=== PATIENT | male | born 1940 | race Caucasian/White ===

== ENCOUNTER 2016-10-10 09:35 | Day surgery (SDC) | payer OTHER ==
--- NOTE | ~2016-10-10 | EGD ---
EGD REPORT [facility] [address] [id number] NAME: DANIEL CAREY : [birth year] STATUS : REG [facility] PAT#: [id number] AGE: 76 ADM/REG DATE : 10/10/16 MR#: [id number] REPORT SERV DATE: 10/10/16 DICTATED BY: BEATRIZ WOLF DATE: 10/10/16 REPORT STATUS : Draft [facility]ANS[facility]: [facility] DATE: 10/10/16 Endoscopy Center Patient Name: Daniel Carey Date of : 1940 Attending MD: LEONEL WOLF MD Procedure Date No Time: 10/10/2016 Procedure: Small bowel enteroscopy Indications: GI bleeding source not documented by previous EGD and colonoscopy Referring MD: MELY RAI MD, Jewel Hendrickson III, MD Medicines: See the Anesthesia note for documentation of the administered medications Complications: No immediate complications. Estimated blood loss: None. Procedure: Pre-Anesthesia Assessment: - ASA Grade Assessment: III - A patient with severe systemic disease. After obtaining informed consent, the endoscope was passed under direct vision. Throughout the procedure, the patient's blood pressure, pulse, and oxygen saturations were monitored continuously. The PCF [id number] was introduced through the mouth and advanced to the jejunum, to the 160 cm bijal (from the incisors). The small bowel enteroscopy was accomplished without difficulty. The patient tolerated the procedure well. Findings: Scope passed to 100 cms beyond the pylorus and 160 cms beyond the incisors There was no evidence of significant pathology at 100. No blood, AVM, ulcer or any other lesion seen. There was no evidence of significant pathology in the entire examined duodenum. The esophagus was normal. A single 30 mm sessile polyp with no bleeding and no stigmata of recent bleeding was found in the gastric antrum. The polyp was removed with a piecemeal technique using a hot snare. Resection and retrieval were complete. Area was successfully injected with 3 mL of a 1:10,000 solution of epinephrine for prevent bleeding. This was done before the polypectomy. Estimated blood loss: none. Impression: - Scope passed to 100 cms beyond the pylorus and 160 cms beyond the incisors - The examined portion of the jejunum was normal. - No blood, AVM, ulcer or any other lesion seen. - Normal examined duodenum. EGD REPORT [address] [place]. [address] NAME: DANIEL CAREY : [birth year] STATUS : REG [facility]#: [id number] AGE: 76 ADM/REG DATE : 10/10/16 MR#: [id number] REPORT SERV DATE: 10/10/16 DICTATED BY: BEATRIZ WOLF DATE: 10/10/16 REPORT STATUS : Draft TRANSCRIBED BY: [employer] DATE: 10/10/16 - Normal esophagus. - A single gastric polyp. Resected and retrieved. Injected. Recommendation: - Discharge patient to home. - Continue present medications. - Await pathology results. - If you have ant chest pain, abdominal pain, bleeding or fever or chills please call offive at [phone] or after hours call my answering service at [phone]. If you cannot get hold of us please proceed to the [facility] emergency room Procedure Code(s): --- Professional --- 57522, Small intestinal endoscopy, enteroscopy beyond second portion of duodenum, not including ileum; with removal of tumor(s), polyp(s), or other lesion(s) by snare technique Diagnosis Code(s): --- Professional --- K31.7, Polyp of stomach and duodenum K92.2, Gastrointestinal hemorrhage, unspecified CPT copyright 2013 [employer]. All rights reserved. The codes documented in this report are preliminary and upon latex ribbon machine operator review may be revised to meet current compliance requirements. LEONEL WOLF MD 10/10/2016 11:10 AM This report has been signed electronically. Number of Addenda: 0 Note Initiated On: 10/10/2016 10:17 AM Scope Withdrawal Time 0 hours 0 minutes 0 seconds [id number] [id number]
[~2016-10-10 09:35] MED LIST: ACET500CAP PO; ADVIL PO; ANOROELLIPTA INH; ASAB PO; BEN25 PO; COREG6 PO; FERGON240 MG PO; FIBERCON PO; FLOMAX4 PO; GLUCOTROL5 PO; GLUCPH PO; HYZAAR 100/25 T1 TAB PO; HYZAAR 50/12.51 TAB PO; JANUVIA100 MG; KAPIDEX60 MG PO; L20 PO; LIPOZENE PO; METAMUCIL CAN7 OZ PO; MULTIPLE VIT PO; NEUR300 PO; NORCO1 TAB PO; PR25 PO; PRAVAC PO; PRESERVISION A1 EAC1 PO; PRILOSEC OTC20 MG PO; PRILOSEC40 MG PO; PROAIR HFA INH; PROBIOTIC; PROBIOTIC PO; PROSCAR5 PO; SEV VITAMINS PO; STIOLTO RESPIMAT4 GM INH; SUCR PO; VIT C/RHIPS/ PO; ZESTORETIC PO; ZOFRAN8 PO
== END 2016-10-10 23:59 | disposition home or self-care (01) ==
LOC: DMU 09:35
PROVIDERS: Internal Medicine Gastroenterology
PROC: 0DBA8ZZ Excision of Jejunum, Via Natural or Artificial Opening Endoscopic (ICD-10-PCS; principal; 2016-10-10 12:00)
DX: K29.50 Unspecified chronic gastritis without bleeding (principal); K25.9 Gastric ulcer, unspecified as acute or chronic, without hemorrhage or perforation; E11.9 Type 2 diabetes mellitus without complications; K21.9 Gastro-esophageal reflux disease without esophagitis; M19.90 Unspecified osteoarthritis, unspecified site; D69.6 Thrombocytopenia, unspecified; D50.0 Iron deficiency anemia secondary to blood loss (chronic); E66.01 Morbid (severe) obesity due to excess calories; E78.5 Hyperlipidemia, unspecified; G47.33 Obstructive sleep apnea (adult) (pediatric); I35.9 Nonrheumatic aortic valve disorder, unspecified; I45.10 Unspecified right bundle-branch block; D64.9 Anemia, unspecified; I10 Essential (primary) hypertension; Z90.49 Acquired absence of other specified parts of digestive tract; Z79.82 Long term (current) use of aspirin; Z87.891 Personal history of nicotine dependence; Z79.899 Other long term (current) drug therapy
CPT/HCPCS: 82962; 88305; 88342